=== PATIENT | male | born 1995 | race Caucasian/White ===

== ENCOUNTER 2024-03-14 19:35 | Emergency (ER) | payer SELFPAY ==
[2024-03-14 19:36] VITALS: BP 126/90
--- NOTE | 2024-03-14 19:52 | ED.GENMED ---
ED Provider Triage
<Leon Gonzales PA-C - Last Filed: 03/14/24 19:53>
-
Patient seen by provider in Triage?: Seen in Triage
Rapid Assessment
29 y/p presenting with abd pain since 03/11. Pain initially generalized, now worse in lower abd R>L. Was at [facility] yesterday and had neg US. no labs or CT done. CT abd/pelvis ordered. Patient otherwise well appearing and in NAD
History of Present Illness
<Leon Gonzales PA-C - Last Filed: 03/14/24 19:53>
General
Chief Complaint: Abdominal Pain
Time Seen by Provider: 03/14/24 19:49
<Dereje Mcmullen DO - Last Filed: 03/15/24 02:12>
History of Present Illness
History of Present Illness:
TIME OF INITIAL ENCOUNTER: 12:05 AM
HPI: Patient presents with about 4 days of abdominal pain. He states he has a history of 'stomach acid' but the pain is more diffuse now and maybe a little more to the right side. He has been burping a lot. He has had no nausea or vomiting or
diarrhea.
EXAM:
GENERAL: Well appearing in no distress
HEENT: Moist oral mucosa
CARDIOVASCULAR: No murmurs, normal heart rate, regular rhythm, No chest wall tenderness
PULMONARY: No respiratory distress, breath sounds are clear and equal
ABDOMEN: Soft with no peritoneal signs, minimal if any right lower quadrant tenderness, elevated BMI
NEUROLOGIC: Excellent strength all extremities, no coordination deficits
PSYCHIATRIC: Appropriate mental status, normal insight and judgement
EXTREMITIES: Nontender, no edema, moves all extremities equally
SKIN: No rash, no lesions
NUMBER AND COMPLEXITY OF PROBLEMS ADDRESSED AT THE ENCOUNTER
� Chronic conditions affecting care: Bipolar disorder, asthma
� Acute Exacerbation and/or Progression of Chronic Illness: This is an acute problem
� Differential Diagnosis includes: Viral syndrome, mesenteric adenitis, inflammatory bowel disease, appendicitis
AMOUNT AND/OR COMPLEXITY OF DATA TO BE REVIEWED AND ANALYZED
� I performed an independent evaluation of and my interpretation is:
EKG:
CT: CT imaging shows a normal appendix., Prominent ileocolic nodes are noted. Prior right inguinal hernia repair noted.
X-rays:
Laboratory Studies: White count 7, hemoglobin 15.3, chemistries are unremarkable, transaminases and lipase are normal, urinalysis is normal
Other:
� Review of other/old records: The patient was seen here with a headache in 2022
� Clinical information was obtained by an independent historian: I spoke to partner at bedside
� Prescriptions/Medications Considered but not given: No indication for antibiotic
� Further testing considered but not performed:
RISK OF COMPLICATIONS AND/OR MORBIDITY OR MORTALITY OF PATIENT MANAGEMENT
� Social determinants of health affecting care: Lives at home
� Discussion with other providers:
� Escalation of care including admission/observation vs risk of discharge considered: Relatively unremarkable physical exam and blood work however the patient does have focal tenderness which is mild in the right lower
quadrant�CT imaging obtained
ANY OTHER UPDATES:
2:10 AM: The patient is very comfortable in appearance. Discussed mild lymph node prominence in the right lower quadrant�possible viral syndrome. Patient has not tried any NSAIDs.
Phy Exam
<Dereje Mcmullen DO - Last Filed: 03/15/24 02:12>
Physical Exam
Physical Exam:
See HPI
Course
<Leon Gonzales PA-C - Last Filed: 03/14/24 19:53>
Orders/Labs/Results
Orders:
Orders
03/14/24 19:49
Complete Blood Count/With Diff Urgent
Comprehensive Metabolic Panel Urgent
Lipase Urgent
Urinalysis Reflex To Culture Urgent
Date Specimen was Collected: 03/14/24
Time Specimen was Collected: 19:40
03/14/24 19:50
Iohexol [Omnipaque] See Protocol PO NOW STA
03/14/24 19:51
Iohexol [Omnipaque] 50 ml .ROUTE .STK-MED ONE
03/15/24 00:04
CT Abd/pel W Iv And Oral Contr Urgent
Reason For Exam: RLQ pain
Abnormal Lab Results
03/14/24
19:49
Absolute Monos (auto) 0.7 H 10^3/uL
(0.1-0.6)
BUN 25 H mg/dl
(9-20)
03/14/24 19:49
03/14/24 19:49
Vital Signs
Initial and Last Documented VS:
Initial Vital Signs
Temp Pulse Resp BP Pulse Ox
36.9 C 76 18 126/90 100
03/14/24 19:36 03/14/24 19:36 03/14/24 19:36 03/14/24 19:36 03/14/24 19:36
Last Documented Vital Signs
Temp Pulse Resp BP Pulse Ox
36.7 C 67 15 130/86 97
03/15/24 00:17 03/15/24 00:17 03/15/24 00:17 03/15/24 00:17 03/15/24 00:17
Wildlt;Dereje Mcmullen, DO - Last Filed: 03/15/24 02:12>
Orders/Labs/Results
Orders:
Orders
03/14/24 19:49
Complete Blood Count/With Diff Urgent
Comprehensive Metabolic Panel Urgent
Lipase Urgent
Urinalysis Reflex To Culture Urgent
Date Specimen was Collected: 03/14/24
Time Specimen was Collected: 19:40
03/14/24 19:50
Iohexol [Omnipaque] See Protocol PO NOW STA
03/14/24 19:51
Iohexol [Omnipaque] 50 ml .ROUTE .STK-MED ONE
03/15/24 00:04
CT Abd/pel W Iv And Oral Contr Urgent
Reason For Exam: RLQ pain
Abnormal Lab Results
03/14/24
19:49
Absolute Monos (auto) 0.7 H 10^3/uL
(0.1-0.6)
BUN 25 H mg/dl
(9-20)
03/14/24 19:49
03/14/24 19:49
Vital Signs
Initial and Last Documented VS:
Initial Vital Signs
Temp Pulse Resp BP Pulse Ox
36.9 C 76 18 126/90 100
03/14/24 19:36 03/14/24 19:36 03/14/24 19:36 03/14/24 19:36 03/14/24 19:36
Last Documented Vital Signs
Temp Pulse Resp BP Pulse Ox
36.7 C 67 15 130/86 97
03/15/24 00:17 03/15/24 00:17 03/15/24 00:17 03/15/24 00:17 03/15/24 00:17
<Dereje Mcmullen DO - Last Filed: 03/15/24 02:12>
*Critical Care Note
Total Time (30-74mins, 75-104mins- exclusive of procedures): Not Applicable
ED Attending Note
<Leon Gonzales PA-C - Last Filed: 03/14/24 19:53>
-
Portions of this chart may have been created with voice recognition software.� Occasional wrong word or��sound alike� substitutions may have occurred due to the inherent limitations of voice recognition software.
Discharge Plan
Departure
Referrals:
Noreen-Re Clemons DO [Family Provider] -
Interventions
Interventions:
*General Assessment Last Done: 03/15/24 00:15
*Neglect/Abuse Screening Last Done: 03/15/24 00:15
ED- Fall Risk Assessment Last Done: 03/15/24 00:15
XB-Anrejt-Fyflsvrjkp Assessment Last Done: 03/15/24 00:29
Discharge Date and Time
Print Language: ALBAN[place]
[2024-03-14] MEDS: OMNIPAQUE 50 ML PO (19:54)
[2024-03-14 19:56] LABS: % Basophils 0.4 % (0-2); % Eosinophils 1.8 % (0-6); % Immature Granulocytes 0.1 % (0-0.5); % Lymphocytes 26.6 % (20.5-51.1); % Monocytes 9.3 % (1.7-9.3); % Neutrophils 61.8 % (42.2-75.2); Absolute Eosinophils 0.1 10^3/uL (0-0.7); Absolute Lymphocytes 2.1 10^3/uL (1.2-3.4); Absolute Monocytes 0.7 10^3/uL (0.1-0.6); Absolute Neutrophils 4.8 10^3/uL (1.4-6.5); Hematocrit 46.1 % (39.0-52.0); Hemoglobin 15.3 g/dL (13.0-18.0); Mean Corp Hgb Conc. 33.2 g/dL (33.0-37.0); Mean Corpuscular Hgb 29.3 pg (27.0-31.0); Mean Corpuscular Volume 88.1 fL (80.0-94.0); Nucleated Red Blood Cells % 0 % (-); Platelet Count 323 10^3/uL (130-400); Red Blood Cell Count 5.23 10^6/uL (4.70-6.10); Red Cell Dist. Width 12.1 % (11.5-14.5); White Blood Cell Count 7.7 10^3/uL (4.8-10.8)
[2024-03-14 19:57] LABS: Urine Albumin Negative (Neg - Trace); Urine Bilirubin Negative (Negative); Urine Character Clear (Clear); Urine Color Yellow; Urine Glucose Negative (Negative); Urine Ketone Negative (Negative); Urine Leukocyte Negative (Negative); Urine Nitrite Negative (Negative); Urine Occult Blood Negative (Negative); Urine Specific Gravity 1.015 (<1.030); Urine Urobilinogen Negative (Neg - 1+); Urine pH 6.5 (5.0-9.0)
[2024-03-14 20:25] LABS: ALT (SGPT) 39 U/L (0-50); AST (SGOT) 24 U/L (17-59); Albumin 4.9 g/dl (3.5-5.0); Alkaline Phosphatase 54 U/L (38-126); Blood Urea Nitrogen 25 mg/dl (9-20); Calcium 9.6 mg/dl (8.4-10.2); Carbon Dioxide 28 mmol/L (22-30); Chloride 102 mmol/L (98-107); Glucose 98 mg/dl (70-99); Lipase 53 U/L (23-300); Potassium 4.7 mmol/L (3.5-5.1); Sodium 140 mmol/L (135-145); Total Bilirubin 0.3 mg/dl (0.2-1.3); Total Protein 7.7 g/dl (6.3-8.2); eGFR > 60.00
[2024-03-15 00:15] VITALS: BMI 32.6
[2024-03-15 00:17] VITALS: BP 130/86
[2024-03-15 01:50] VITALS: BP 122/78
== END 2024-03-15 02:25 | disposition home or self-care (01) ==
LOC: EMR 19:35
PROVIDERS: Emergency Medicine; EMERGENCY PHYSICIAN Emergency Medicine; FAMILY PHYSICIAN Family Medicine
DX: R10.84 Generalized abdominal pain (principal)
CPT/HCPCS: 99284; 74177; 80053; 81003; 83690; 85025; Q9967